=== PATIENT | male | born 1945 | race Caucasian/White ===

== ENCOUNTER 2017-03-24 23:42 | Emergency (ER) | payer OTHER ==
[~2017-03-24] VITALS: Ht 167.6 cm; Wt 84.0 kg
[~2017-03-24 23:42] MED LIST: AMLODIPINE BESY10 MG PO; ASPIRIN81 M2 PO; AVODART0.5 MG PO; BETIMOL 0.100 DROP/5 LEFT EYE; LISINOPRIL20 MG PO; ZESTRIL40 MG PO; ZOCOR20 MG PO
[2017-03-25 00:02] LABS: HEMATOCRIT 42.5 % (38.0-50.0); HEMOGLOBIN 14.4 G/DL (12.5-16.6); MCH 30.1 PG (29.0-34.0); MCHC 33.9 G/DL (30.0-36.0); MCV 88.9 FL (86-99); PLATELET COUNT 275 K/uL (156-360); RBC DIS.WIDTH-CV 12.9 % (11.8-14.6); RBC DIS.WIDTH-SD 42.4 % (39-53); RED BLOOD COUNT 4.78 M/uL (4.00-5.50); WHITE BLOOD COUNT 7.3 K/uL (4.1-10.2)
[2017-03-25 00:15] LABS: CHLORIDE 104 mEq/L (99-109); POTASSIUM 4.2 mEq/L (3.7-5.4); SODIUM 137 mEq/L (136-147)
[2017-03-25 00:17] LABS: GLUCOSE 107 mg/dL (70-99)
[2017-03-25 00:21] LABS: GFR ESTIMATE (CALCULATED) > 59 mL/min/ (58.99-99999); UREA NITROGEN (BUN) 23 mg/dL (9-23)
[2017-03-25 00:33] LABS: MAGNESIUM 2.4 mg/dL (1.3-2.7)
[2017-03-25 00:42] LABS: TROP-I INTERPRETATION NEGATIVE; TROPONIN-I < 0.01 ng/mL (0.0-0.30)
[2017-03-25 02:00] VITALS: BP 131/80
== END 2017-03-25 02:11 | disposition home or self-care (01) ==
LOC: EME 23:42
DX: R55 Syncope and collapse (principal); I10 Essential (primary) hypertension; E78.5 Hyperlipidemia, unspecified; H40.9 Unspecified glaucoma
CPT/HCPCS: 71046; 80048; 83735; 84484; 85027; 93005; 99281; 99285; J7030

== ENCOUNTER 2017-07-10 12:36 | Emergency (ER) | payer OTHER ==
[~2017-07-10] VITALS: Ht 167.6 cm; Wt 79.8 kg
[2017-07-10 12:52] VITALS: BP 100/60
[2017-07-10 13:24] LABS: BASOPHIL (%) 0.7 % (0-1); EOSINOPHIL (%) 3.6 % (0-5); EOSINOPHIL COUNT 0.2 K/uL (0-0.3); HEMATOCRIT 39.8 % (38.0-50.0); HEMOGLOBIN 13.4 G/DL (12.5-16.6); IMMATURE GRANULOCYTE (%) 0.2 % (0.0-0.7); LYMPHOCYTE (%) 30.8 % (15-42); LYMPHOCYTE COUNT 1.8 K/uL (1.0-2.8); MCH 30.5 PG (29.0-34.0); MCHC 33.7 G/DL (30.0-36.0); MCV 90.5 FL (86-99); MONOCYTE COUNT 0.4 K/uL (0-0.8); NEUTROPHIL (%) 57.7 % (45-76); NEUTROPHIL COUNT 3.4 K/uL (1.8-6.4); PLATELET COUNT 267 K/uL (156-360); RBC DIS.WIDTH-CV 13.2 % (11.8-14.6); RBC DIS.WIDTH-SD 43.7 % (39-53); WHITE BLOOD COUNT 5.9 K/uL (4.1-10.2)
[2017-07-10 13:34] LABS: CHLORIDE 109 mEq/L (99-109); POTASSIUM 4.2 mEq/L (3.7-5.4)
[2017-07-10 13:35] LABS: SODIUM 141 mEq/L (136-147)
[2017-07-10 13:36] LABS: GLUCOSE 137 mg/dL (70-99)
[2017-07-10 13:40] LABS: CREATININE 1.1 mg/dL (0.6-1.3); GFR ESTIMATE (CALCULATED) > 59 mL/min/ (58.99-99999)
[2017-07-10 13:41] LABS: UREA NITROGEN (BUN) 23 mg/dL (9-23)
[2017-07-10 13:45] LABS: TROP-I INTERPRETATION NEGATIVE; TROPONIN-I < 0.01 ng/mL (0.0-0.30)
== END 2017-07-10 14:03 | disposition home or self-care (01) ==
LOC: EME 12:36
PROVIDERS: Emergency Medicine
DX: R55 Syncope and collapse (principal); I10 Essential (primary) hypertension; E78.5 Hyperlipidemia, unspecified; H40.9 Unspecified glaucoma; Z79.82 Long term (current) use of aspirin
CPT/HCPCS: 70450; 71045; 80048; 84484; 85025; 93005; 99281; 99284

== ENCOUNTER 2017-07-15 11:06 | Emergency (ER) | payer OTHER ==
[~2017-07-15] VITALS: Ht 167.6 cm; Wt 81.0 kg
[2017-07-15 12:44] LABS: HEMATOCRIT 40.9 % (38.0-50.0); HEMOGLOBIN 14.1 G/DL (12.5-16.6); MCH 30.7 PG (29.0-34.0); MCHC 34.5 G/DL (30.0-36.0); MCV 89.1 FL (86-99); PLATELET COUNT 249 K/uL (156-360); RBC DIS.WIDTH-CV 13.2 % (11.8-14.6); RBC DIS.WIDTH-SD 42.7 % (39-53); RED BLOOD COUNT 4.59 M/uL (4.00-5.50); WHITE BLOOD COUNT 6.7 K/uL (4.1-10.2)
[2017-07-15 12:49] LABS: ALBUMIN 4.4 g/dL (3.2-4.8); CHLORIDE 108 mEq/L (99-109); POTASSIUM 3.9 mEq/L (3.7-5.4); SODIUM 142 mEq/L (136-147)
[2017-07-15 12:51] LABS: GLUCOSE 98 mg/dL (70-99); PTT 29.9 SEC (25-37)
[2017-07-15 12:52] LABS: TOTAL PROTEIN 6.9 g/dL (6.4-8.3)
[2017-07-15 12:53] LABS: TOTAL BILIRUBIN 1.2 mg/dL (0.0-1.0)
[2017-07-15 12:55] LABS: ALKALINE PHOSPHATASE 78 IU/L (3-129); GFR ESTIMATE (CALCULATED) > 59 mL/min/ (58.99-99999)
[2017-07-15 12:56] LABS: UREA NITROGEN (BUN) 17 mg/dL (9-23)
[2017-07-15 12:57] LABS: AST (GOT) 16 IU/L (2-34)
[2017-07-15 12:58] LABS: ALT (GPT) 19 IU/L (3-49)
[2017-07-15 13:00] LABS: TROP-I INTERPRETATION NEGATIVE; TROPONIN-I < 0.01 ng/mL (0.0-0.30)
[2017-07-15 13:17] LABS: APPEARANCE CLEAR ((CLEAR)); BILIRUBIN NEGATIVE; BLOOD NEGATIVE; COLOR STRAW ((YELLOW)); GLUCOSE (STRIP) NEGATIVE; KETONES NEGATIVE; LEUKOCYTES NEGATIVE; NITRITE NEGATIVE; PROTEIN (STRIP) NEGATIVE; SPECIFIC GRAVITY 1.005 (1.000-1.030); UCUL ADDED? NO; UROBILINOGEN 0.2 MG/DL (0.2-1.0)
[2017-07-15 16:21] VITALS: BP 140/77
== END 2017-07-15 16:41 | disposition home or self-care (01) ==
LOC: EME 11:06
PROVIDERS: Emergency Medicine
DX: R55 Syncope and collapse (principal); I10 Essential (primary) hypertension; E78.5 Hyperlipidemia, unspecified; Z79.82 Long term (current) use of aspirin
CPT/HCPCS: 71046; 80053; 81003; 84484; 85027; 85610; 85730; 93005; 99281; 99284